=== PATIENT | female | born 1990 | race Caucasian/White ===

== ENCOUNTER 2021-03-07 23:15 | Emergency (ER) | payer MEDICAID ==
[~2021-03-07] VITALS: Ht 167.6 cm; Wt 110.3 kg
[2021-03-07] MEDS ORDERED: ZITHROMAX250 MG PO (23:42)
[2021-03-08] MEDS ORDERED: DOXYCYCLINE HY100 MG PO (00:10)
== END 2021-03-08 00:21 | disposition home or self-care (01) ==
LOC: ED 23:15
DX: N76.2 Acute vulvitis (principal); Z88.6 Allergy status to analgesic agent; Z86.73 Personal history of transient ischemic attack (TIA), and cerebral infarction without residual deficits
CPT/HCPCS: 99283

== ENCOUNTER 2022-10-20 11:52 | Emergency (ER) | payer OTHER ==
[~2022-10-20] VITALS: Ht 167.6 cm; Wt 101.2 kg
[~2022-10-20 11:52] MED LIST: DOXYCYCLINE HY100 MG PO; ZITHROMAX250 MG PO
[2022-10-20 14:38] VITALS: BP 103/62
--- NOTE | 2022-10-20 18:11 | EKG ---
[facility] [address] [facility] [place], [place] [address] Signed Sinus bradycardia Otherwise normal ECG When compared with ECG of 25-MAR-2022 15:59, No significant change was found Confirmed by JACKSON GUEVARA MD ([id number]) on 10/20/2022 6:10:51 PM Electronically Signed By: JACKSON GUEVARA MD 10/20/221810 PATIENT NAME: AIME DAVIS Electrocardiogram DATE OF : [birth year] PHYSICIAN: JACKSON GUEVARA MD REPORT #: [id number] REPORT IS CONFIDENTIAL AND NOT TO BE RELEASED WITHOUT AUTHORIZATION
== END 2022-10-20 14:38 | disposition home or self-care (01) ==
LOC: ED 11:52
DX: R41.0 Disorientation, unspecified (principal); Z88.8 Allergy status to other drugs, medicaments and biological substances
CPT/HCPCS: 36415; 70450; 71045; 80053; 84484; 85025; 93005; 93010; 99285-25

== ENCOUNTER 2022-11-08 15:45 | Emergency (ER) | payer OTHER ==
[~2022-11-08] VITALS: Ht 167.6 cm; Wt 103.0 kg
--- OUTSIDE RECORDS SUMMARY | 2022-11-08 15:55 | XMS ---
PreManage Notification: AIME DAS [employer] Events No recent Security Events currently on file CRITERIA MET - [facility] - 2 Visits in 30 Days CARE PROVIDERS -, Kurtis Silva- Dentist: Director Of Direct Marketing [facility] PHONE: [phone] Mary has no Care Guidelines for this patient. Thom VISIT COUNT (12 MO.) [address] [place] [address] TOTAL 4 NOTE: Visits indicate total known visits. ED/UCC VISIT TRACKING (12 MO.) 11/08/2022 15:46 [facility] [place] TYPE: Emergency COMPLAINT: - ABDOMINAL PAIN 10/20/2022 11:53 [facility] [place] TYPE: Emergency COMPLAINT: - POSS STROKE DIAGNOSES: - Allergy status to other drugs, medicaments and biological substances - Disorientation, unspecified 05/30/2022 20:38 [facility] [place] TYPE: Emergency COMPLAINT: - L OVARY ISSUES DIAGNOSES: - Allergy status to analgesic agent - Other specified conditions associated with female genital organs and menstrual cycle - Pelvic and perineal pain - Unspecified ovarian cyst, left side 03/25/2022 15:10 [facility] [place] TYPE: Emergency COMPLAINT: - EYE PROBLEMS INPATIENT VISIT TRACKING (12 MO.) 03/25/2022 15:11 [facility] [place] TYPE: Observation COMPLAINT: - AMAUROSIS FUGAX DIAGNOSES: - Allergy status to other drugs, medicaments and biological substances - Amaurosis fugax - Body mass index [BMI] 37.0-37.9, adult - Contact with and (suspected) exposure to COVID-19 - Headache, unspecified - Obesity, unspecified - Occlusion and stenosis of right carotid artery - Other chronic pain - Other visual disturbances - Personal history of transient ischemic attack (TIA), and cerebral infarction without residual deficits - Prediabetes - Transient visual loss, right eye [email or web address]
[2022-11-08 21:59] VITALS: BP 107/66
== END 2022-11-08 22:01 | disposition home or self-care (01) ==
LOC: ED 15:45
DX: R10.2 Pelvic and perineal pain (principal); Z88.6 Allergy status to analgesic agent
CPT/HCPCS: 36415; 76830; 76856; 80053; 81001; 83690; 83735; 84703; 85025; 96374; 99284-25; J2405

== ENCOUNTER 2023-07-23 23:45 | Emergency (ER) | payer OTHER ==
[~2023-07-23] VITALS: Ht 167.6 cm; Wt 108.0 kg
[2023-07-24 01:17] VITALS: BP 112/66
== END 2023-07-24 01:13 | disposition home or self-care (01) ==
LOC: ED 23:45
DX: J02.9 Acute pharyngitis, unspecified (principal); Z88.6 Allergy status to analgesic agent
CPT/HCPCS: 87651; 99283

== ENCOUNTER 2023-10-17 09:43 | Emergency (ER) | payer OTHER ==
[~2023-10-17] VITALS: Ht 167.6 cm; Wt 109.6 kg
[2023-10-17 10:36] LABS: BASOPHILS 0.5 % (0-2); EOSINOPHILS 2.6 % (0-6); HEMATOCRIT 39.4 % (35.0-50.0); HEMOGLOBIN 12.8 g/dL (12.0-18.0); LYMPHOCYTES 41.4 % (24-44); MCH 27.5 (27-36); MCHC 32.4 g/dl (30-36); MCV 84.9 fl (81-99); MONOCYTES 7.3 % (0-12); NEUTROPHILS 48.2 % (39-80); PLATELET COUNT 270 K/uL (140-440); RBC 4.64 M/ul (4.3-5.7); RDW 13.4 (10.5-15.0)
[2023-10-17 10:43] LABS: ALBUMIN 3.6 g/dL (3.4-5.0); ALBUMIN/GLOBULIN RATIO 0.95 (1.1-2.4); ALKALINE PHOSPHATASE 58 U/L (46-116); ALT (SGPT) 24 U/L (14-59); AST (SGOT) 17 U/L (15-37); BILIRUBIN, TOTAL 0.3 ng/dL (0.2-1.0); BUN/CREATININE RATIO 8.42 (6.0-28.6); CARBON DIOXIDE 26 mmol/L (21-32); CHLORIDE 102 mmol/L (98-107); CREATININE, SERUM 0.95 mg/dL (0.55-1.02); GLOMERULAR FILTRATION RATE,EST 82 mL/min (>60); MAGNESIUM 1.8 mg/dL (1.8-2.4); PROTEIN, TOTAL 7.4 g/dL (6.4-8.2); UREA NITROGEN 8 mg/dL (7-18)
[2023-10-17] MEDS ORDERED: ASPIRIN 81 MG CHEW PO ONE (10:45)
[2023-10-17] MEDS ORDERED: LIDOCAINE & ANTACID 35 ML BTL PO ONE (10:45)
[2023-10-17] MEDS ORDERED: PANTOPRAZOLE SODIUM 40 MG/10 ML VIAL IV ONE (10:45)
[2023-10-17] MEDS ORDERED: OMEPRAZOLE20 MG PO (14:07)
[2023-10-17] MEDS ORDERED: ONDANSETRON ODT8 MG PO (14:07)
[2023-10-17 14:25] VITALS: BP 109/48
--- NOTE | 2023-10-17 19:25 | EKG ---
[facility] [address] [facility] [place], [place] [address] Signed Normal sinus rhythm with sinus arrhythmia Normal ECG Confirmed by Dinesh Dodson ([id number]) on 10/17/2023 7:25:40 PM Electronically Signed By: DINESH DODSON MD 10/17/23 192 PATIENT NAME: AIME DAS ANGELITO Electrocardiogram DATE OF : [birth year] PHYSICIAN: DINESH DODSON MD REPORT #: [id number] REPORT IS CONFIDENTIAL AND NOT TO BE RELEASED WITHOUT AUTHORIZATION
== END 2023-10-17 14:27 | disposition home or self-care (01) ==
LOC: ED 09:43
PROVIDERS: Emergency Medicine
DX: R10.13 Epigastric pain (principal); Z88.6 Allergy status to analgesic agent
CPT/HCPCS: 36415; 71045; 80053; 83735; 84484; 85025; 93005; 93010; 96374; 99285-25; A9270; C9113

== ENCOUNTER 2023-11-07 15:58 | Emergency (ER) | payer OTHER ==
[~2023-11-07] VITALS: Ht 167.6 cm; Wt 110.2 kg
[~2023-11-07 15:58] MED LIST changes: +OMEPRAZOLE20 MG PO; +ONDANSETRON ODT8 MG PO
--- OUTSIDE RECORDS SUMMARY | 2023-11-07 16:05 | XMS ---
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 Thom VISIT COUNT (12 MO.) 4 [facility] (Kathy Chavez) TOTAL 5 NOTE: Visits indicate total known visits. ED/UCC VISIT TRACKING (12 MO.) 11/07/2023 15:58 [facility] [place] TYPE: Emergency COMPLAINT: - RT BREAST ISSUES 10/17/2023 09:44 [facility] [place] TYPE: Emergency COMPLAINT: - CHEST PAIN DIAGNOSES: - Allergy status to analgesic agent - Epigastric pain 07/23/2023 23:46 [facility] [place] TYPE: Emergency COMPLAINT: - THROAT/SWALLOWING ISSUE DIAGNOSES: - Acute pharyngitis, unspecified - Allergy status to analgesic agent [facility] Emergency DIAGNOSES: - COVID-19 - head congestion body aches runny nose - URI 11/08/2022 15:46 [facility] [place] TYPE: Emergency COMPLAINT: - ABDOMINAL PAIN DIAGNOSES: - Allergy status to analgesic agent - Pelvic and perineal pain INPATIENT VISIT TRACKING (12 MO.) No inpatient visits to display in this time frame [email or web address]
[2023-11-07 19:59] LABS: BASOPHILS 0.2 % (0-2); EOSINOPHILS 1.4 % (0-6); HEMATOCRIT 38.6 % (35.0-50.0); HEMOGLOBIN 12.8 g/dL (12.0-18.0); LYMPHOCYTES 34.9 % (24-44); MCHC 33.1 g/dl (30-36); MCV 84.5 fl (81-99); MONOCYTES 5.5 % (0-12); PLATELET COUNT 222 K/uL (140-440); RBC 4.57 M/ul (4.3-5.7); RDW 13.9 (10.5-15.0)
[2023-11-07 20:07] LABS: PROTIME 12.8 Sec (11.2-14.2)
[2023-11-07 20:13] LABS: ALBUMIN 3.4 g/dL (3.4-5.0); ALBUMIN/GLOBULIN RATIO 0.92 (1.1-2.4); ANION GAP 13.8 (7-21); BILIRUBIN, TOTAL 0.4 ng/dL (0.2-1.0); BUN/CREATININE RATIO 10.86 (6.0-28.6); CALCIUM 8.4 mg/dL (8.5-10.1); CREATININE, SERUM 0.92 mg/dL (0.55-1.02); POTASSIUM 3.8 mmol/L (3.5-5.1); PROTEIN, TOTAL 7.1 g/dL (6.4-8.2)
[2023-11-07 21:05] VITALS: BP 117/77
== END 2023-11-07 21:05 | disposition home or self-care (01) ==
LOC: ED 15:58
PROVIDERS: Family Medicine
DX: N64.89 Other specified disorders of breast (principal); Z79.899 Other long term (current) drug therapy; Z88.6 Allergy status to analgesic agent
CPT/HCPCS: 36415; 76642; 80053; 85025; 85610; 99284-25

== ENCOUNTER 2024-08-31 10:07 | Emergency (ER) | payer OTHER ==
[~2024-08-31] VITALS: Ht 167.6 cm; Wt 109.2 kg
[~2024-08-31 10:07] MED LIST changes: +KETOROLAC TROME10 MG PO; +ONDANSETRON ODT4 MG SL; +PERCOCET 5-3251 EACH PO
[2024-08-31] MEDS ORDERED: BAYER CHEWABLE81 MG PO (10:23)
[2024-08-31] MEDS ORDERED: MIDOL COMPLETE1 EACH PO (10:23)
[2024-08-31 10:52] LABS: BASOPHILS 0.3 % (0-2); EOSINOPHILS 1.3 % (0-6); HEMATOCRIT 38.8 % (35.0-50.0); HEMOGLOBIN 13.1 g/dL (12.0-18.0); LYMPHOCYTES 36.3 % (24-44); MCH 28.5 (27-36); MCHC 33.7 g/dl (30-36); MCV 84.7 fl (81-99); NEUTROPHILS 55.1 % (39-80); PLATELET COUNT 222 K/uL (140-440); RBC 4.58 M/ul (4.3-5.7); RDW 13.5 (10.5-15.0)
[2024-08-31] MEDS ORDERED: CYCLOBENZAPRINE HCL 10 MG TAB PO ONE (11:00)
[2024-08-31] MEDS ORDERED: IBUPROFEN 600 MG TAB PO ONE (11:00)
[2024-08-31 11:03] LABS: ALBUMIN 3.4 g/dL (3.4-5.0); ALBUMIN/GLOBULIN RATIO 0.97 (1.1-2.4); ALKALINE PHOSPHATASE 46 U/L (46-116); ALT (SGPT) 28 U/L (14-59); ANION GAP 11.9 (7-21); AST (SGOT) 13 U/L (15-37); BILIRUBIN, TOTAL 0.4 mg/dL (0.2-1.0); BUN/CREATININE RATIO 6.32 (6.0-28.6); CALCIUM 8.5 mg/dL (8.5-10.1); CARBON DIOXIDE 27 mmol/L (21-32); CHLORIDE 105 mmol/L (98-107); CREATININE, SERUM 0.79 mg/dL (0.55-1.02); GLOMERULAR FILTRATION RATE,EST 101 mL/min (>60); POTASSIUM 3.9 mmol/L (3.5-5.1); PROTEIN, TOTAL 6.9 g/dL (6.4-8.2); UREA NITROGEN 5 mg/dL (7-18)
[2024-08-31] MEDS ORDERED: CYCLOBENZAPRINE10 MG PO (11:39)
[2024-08-31 11:49] VITALS: BP 100/60
--- NOTE | 2024-09-01 12:23 | EKG ---
[facility] [address] [facility] [place] [address] Signed Normal sinus rhythm Normal ECG When compared with ECG of 17-OCT-2023 09:46, No significant change was found Confirmed by Bob Freeman MD () on 09/01/2024 12:23:13 PM Electronically Signed By: BOB FREEMAN MD 09/01/24 1223 PATIENT NAME: PIPPAAIME Electrocardiogram DATE OF : [birth year] PHYSICIAN: BOB FREEMAN MD REPORT #: [id number] REPORT IS CONFIDENTIAL AND NOT TO BE RELEASED WITHOUT AUTHORIZATION
== END 2024-08-31 11:47 | disposition home or self-care (01) ==
LOC: ED 10:07
PROVIDERS: Emergency Medicine
DX: S16.1XXA Strain of muscle, fascia and tendon at neck level, initial encounter (principal); S44.91XA Injury of unspecified nerve at shoulder and upper arm level, right arm, initial encounter; X58.XXXA Exposure to other specified factors, initial encounter; Z88.8 Allergy status to other drugs, medicaments and biological substances; Z79.82 Long term (current) use of aspirin; Z79.899 Other long term (current) drug therapy
CPT/HCPCS: 36415; 80053; 84484; 85025; 93005; 93010; 99285; A9270

== ENCOUNTER 2025-03-12 05:45 | Day surgery (SDC) | payer OTHER ==
[2025-03-12] VITALS (11 sets, daily range): BP systolic 101–132; BP diastolic 53–78
[~2025-03-12] VITALS: Ht 167.6 cm; Wt 114.3 kg
[~2025-03-12 05:45] MED LIST changes: +BAYER CHEWABLE81 MG PO; +CYCLOBENZAPRINE10 MG PO; +LACTATED RINGER'S 1,000 ML IV SCH; +MIDOL COMPLETE1 EACH PO
[2025-03-12] MEDS ORDERED: MIDOL CAPLET1 EAC1 PO (06:13)
[2025-03-12] MEDS ORDERED: CEFAZOLIN SODIUM 2 GM in SODIUM CHLORIDE 0.9% 100 ML IV SCH (07:00)
[2025-03-12] MEDS ORDERED: IBLOOD GLUCOSE TEST STRIP 1 EA TEST VI PRN ×2 (07:00→09:15)
[2025-03-12] MEDS ORDERED: LIDOCAINE HCL 1% 5 ML SDV INJ ONE (07:00)
[2025-03-12] MEDS ORDERED: HEParin SOD (PORCINE) 5,000 UNIT/ML SDV SUB-Q SCH (07:00)
[2025-03-12] MEDS ORDERED: fentaNYL citrate 100 MCG/2 ML VIAL ONE ×2 (07:20→07:56)
[2025-03-12] MEDS ORDERED: LIDOCAINE HCL 2% 5 ML SDV ONE (07:20)
[2025-03-12] MEDS ORDERED: ROCURONIUM BROMIDE 50 MG/5 ML SYR ONE ×3 (07:20→09:48)
[2025-03-12] MEDS ORDERED: DEXAMETHASONE SOD PHOS 4 MG/ML VIAL ONE (07:22)
[2025-03-12] MEDS ORDERED: KETOROLAC TROMETHAMINE 30 MG/ML VIAL ONE (07:22)
[2025-03-12] MEDS ORDERED: SEVOFLURANE 250 ML BTL ONE (07:32)
[2025-03-12] MEDS ORDERED: MAGNESIUM SULFATE 1 GM/2 ML VIAL ONE (07:53)
[2025-03-12] MEDS ORDERED: KETAMINE in NS 50 MG/5 ML SYR ONE (08:21)
[2025-03-12] MEDS ORDERED: LABETALOL HCL 20 MG/4 ML VIAL ONE (08:33)
[2025-03-12] MEDS ORDERED: ACETAMINOPHEN 1,000 MG/100 ML VIAL ONE (09:05)
[2025-03-12] MEDS ORDERED: HYDROmorphone HCL 1 MG/ML SYR IV PRN ×3 (09:15→17:30)
[2025-03-12] MEDS ORDERED: fentaNYL citrate 50 MCG/ML SDV IV PRN (09:15)
[2025-03-12] MEDS ORDERED: NALOXONE HCL 0.4 MG SYR IV PRN ×2 (09:15→12:30)
[2025-03-12] MEDS ORDERED: SEVOFLURANE 250 ML BTL INH ONE (09:16)
[2025-03-12] MEDS ORDERED: SUGAMMADEX SODIUM 200 MG/2 ML ML ONE (09:48)
[2025-03-12] MEDS ORDERED: FLUORESCEIN SODIUM 500 MG/5 ML ML ONE (09:50)
--- NOTE | 2025-03-12 10:48 | NUR ---
03/12/25 Bri8 Laura Fowler 1038- PT ARRIVES TO PACU, SEMI PRITCHETT POSITION, NON REACTIVE TO STIMULUS. OPA IN PLACE, MAINTAINING AIRWAY WITH HEAD POSITIONING, BREATHING EVEN AND NON LABORED, O2 AT 6L PER MASK. LR INFUSING TO RFA IV. ABD SOFT, NON DISTENDED. 4 LAP SITES, DRESSINGS CDI. CAMILO CATHETER IN PLACE DRAINING BRIGHT COLORED URINE, FLOURESCENCE USED. ALL MONITORS IN PLACE.
--- NOTE | 2025-03-12 11:46 | NUR ---
1135- BEDSIDE REPORT RECEIVED FROM RADHA EARL. PT IS RESTING WITH EYES CLOSED ON 2L OF O2 VIA NC. PT REPORTS 5/10 PAIN THAT IS TOLERABLE AND NO NAUSEA. LR INFUSING. CAMILO IS IN PLACE WITH CLEAR, YELLOW URINE DRAINING. VITAL SIGNS OBATINED. DISCHARGE CRITERIA DISCUSSED AND PT IS AGREEABLE. PT EASILY FALLS BACK TO SLEEP.
[2025-03-12] MEDS ORDERED: OXYCODONE/APAP 5/325 TAB PO PRN (12:30)
[2025-03-12] MEDS ORDERED: PROCHLORPERAZINE EDISYLATE 10 MG/2 ML VIAL IV PRN (12:30)
[2025-03-12] MEDS ORDERED: FAMOTIDINE 20 MG/ 2 ML VIAL IV PRN (12:30)
[2025-03-12] MEDS ORDERED: SIMETHICONE 80 MG CHEW PO PRN (12:30)
[2025-03-12] MEDS ORDERED: MAGNESIUM HYDROXIDE/AL HYDROX 30 ML CUP PO PRN (12:30)
--- NOTE | 2025-03-12 12:48 | NUR ---
1235- PT IS REQUESTING WATER. WATER AND CRACKERS PROVIDED, PT IS ABLE TO EAT AND DRINK AND DENIES NAUSEA. CAMILO CATHETER REMOVED PER ORDERS. 150ML OF CLEAR, YELLOW, CONCENTRATED URINE NOTED IN CAMILO BAG. O2 TURNED OFF AND REMOVED. PT IS ABLE TO MAINTAIN SATS ABOVE 95%. AT BEDSIDE. 1245- VITAL SIGNS OBATINED. SURGICAL SITES ASSESSED. QUESTIONS AND CONCERNS ANSWERED. PT IS RESTING NOW WITH EYES CLOSED AND A SMALL AMOUNT OF SNORING NOTED. APPLESAUCE PROVIDED.
[2025-03-12] MEDS ORDERED: SIMETHICONE 80 MG CHEW PO SCH (13:00)
--- NOTE | 2025-03-12 14:02 | NUR ---
1400- PT RESTING IN STRETCHER TALKING ON THE PHONE. VITAL SIGNS OBTAINED. PT REPORTS 5/10 PAIN AND WOULD LIKE MEDICATION AT THIS TIME. SURGICAL SITES ASSESSED. VSS. PT AWARE OF DISCHARGE CRITERIA. QUESTIONS AND CONCERNS ANSWERED. PT HOB INCREASED TO EAT APPLE SAUCE.
--- NOTE | 2025-03-12 14:35 | NUR ---
1413- PT REQUESTING TO GET UP AND USE THE RESTROOM. PT SITTING UP AT THE SIDE OF THE BED. PT GETTING MEDICAITONS AND TOOK THE MYLICON. PT BEGINS DRY HEAVING AND DENIES WANTING THE PAIN MEDICAION FOR NOW. 1435- PT IS GIVEN COMPAZINE FOR NAUSEA. PT LAYING ON HER RIGHT SIDE WITH A COOL WASHCLOTH ON HER FOREHEAD.
--- NOTE | 2025-03-12 15:15 | NUR ---
1500- PT IS RESTING IN STRETCHER. PT WAKES TO VERBAL STIMULI. PT REPORTS 5/10 PAIN AND DOES NOT WANT PAIN MEDICAITON AT THIS TIME. PT DENIES NAUSEA AFTER NAUSEA MEDICAITON WAS GIVEN EARLIER. PT REQUESTING TO GET UP AND USE THE RESTROOM.
--- NOTE | 2025-03-12 15:45 | NUR ---
1530- PT IS UP TO THE RESTROOM. PT IS ABLE TO WALK SLOWLY TO BATHROOM WITH AN EVEN AND STEADY GAIT. PT IS ABLE TO VOID 200ML OF CLEAR, YELLOW AND CONCENTRATED URINE.
--- NOTE | 2025-03-12 16:21 | NUR ---
1545- PT WHILE STANDING UP IN THE RESTROOM VOMITS 400ML OF CLEAR, YELLOW FLUID. PT RETURNED TO ROOM SAFELY. COMPAZINE GIVEN, SEE EMAR. 1549- DR. WEI CALLED AND UPDATED ABOUT PATIENTS NAUSEA. VERBAL ORDER FOR 8MG OF ZOFRAN. 1600- PT RESTING IN ROOM. ZOFRAN GIVEN, SEE EMAR. PT DENIES NAUSEA AT THIS TIME WHILE LAYING STILL. PT REPORTS 5/10 PAIN BUT DENIES WANTING PAIN MEDICATION AT THIS TIME DUE TO HER NAUSEA COMING AND GOING. SURGICAL SITES ASSESSED. PT REPORTS THE ONE AT THE UMBILICUS HURTING THE MOST. BED IS LOCKED IN THE LOWEST POSITION.
--- NOTE | 2025-03-12 17:06 | NUR ---
165- VITAL SIGNS OBTAINED. DISCHARGE CRITERIA DISCUSSED AND GONE OVER WITH EDUCATION GIVEN. PT REPORTS 7/10 PAIN BUT WORRIED ABOUT TAKING PAIN MEDICATION WITH INCREASED NAUSEA. PT HAS EMESIS BAG AT BEDSIDE. 1699- DR. WEI CALLED AND UPDATED. WEI TO COME TO DAY SURGERY TO ASSESS PT. 1704- PT MADE AWARE OF PLAN. QUESTIONS ANSWERED. PT SITTING UP AT THE SIDE OF THE BED MOANING WHEN MOVING WITH EMESIS BAG IN HAND. PT REPORTS PAIN AND NAUSEA. AT BEDSIDE COMFORTING PT. CRACKERS PROVIDED PER REQUEST. PT IS EDUCATED ABOUT VERY SLOWLY EATING WITH NAUSEA. PT REPORTS UNDERSTANDING.
--- NOTE | 2025-03-12 17:51 | NUR ---
Pt arrives to room via day surgery stretcher and 3 PACU RNs. Pt is A&O but drowsy. She reports her pain in her abdomen as a 4 out of 10 at this time. Pt is able to stand and pivot transfer from stretcher to bed, SBA. SCDs applied BLE. I/S at bedside, fresh water provided, cup of ice and emanuel crackers provided. 1755 report received from RN Charla Cole Assessment completed. Mylicon chew administered PO per emar, pt tolerated well, no nausea at this time. Pt oriented to room and call light. Side rails up x4, call light and bedside table with personal belongings in reach. Dr. Anderson in to see pt at 1807 hours.
--- NOTE | 2025-03-12 18:08 | NUR ---
1739- PAIN MEDICATION GIVEN PER . SEE EMAR. 1745- PT SITTING UP AFTER PAIN MEDICATION GIVEN AND VOMITS 50ML. 1755- BEDSIDE REPORT GIVEN TO RADHA MEIER. ALL QUESTIONS AND CONCERNS ANSWERED. PT IS ABLE TO TRANSFER TO MED/SURG BED SAFELY. CARE TURNED OVER AT THIS. BED LOCKED IN LOWEST POSTION AND PLUGGED IN . VITAL SIGNS OBATINED. SURGICAL SITES ASSESSED TOGETHER.
--- NOTE | 2025-03-12 18:42 | NUR ---
JOSIE Taylor in RT to let her know I placed the pt on CPOX per post op policy and also advised her of the pt's recent appointment with the sleep specialist and that she does not yet have a sleep study scheduled but will, eventually have one done.
--- NOTE | 2025-03-12 19:13 | NUR ---
PATIENT IN BED AT THIS TIME. HEAD CORRECTION OFFICER ASSISTED PATIENT TO BATHROOM AND THEN BACK TO BED. CALL LIGHT WITHIN REACH, NO FURTHER NEEDS.
--- NOTE | 2025-03-12 20:44 | NUR ---
Pt in bed, repositions self, no c/o pain. On room air, post op CPOX on at bedside. lungs clear bilat, abd large soft, tender, slightly distended upper abd. faint VERNON, denies passing gas or burping. lap sites covered with bandaids. cooperative with assessment, A&Ox4. flat affect cooperative. scds in place, SL RFA. Medicated with Pepcid, upset stomach. Watching tv with
--- NOTE | 2025-03-12 21:56 | NUR ---
c/o feeling nauseated, medicated with zofran iv. in bed, scds in place, post op cpox at bedside, on room air. denies passing gas or burping, tolerating small sips of water and crackers at this time.
--- NOTE | 2025-03-13 00:10 | NUR ---
Pt up to brp, voided QS, ambulated lower nursing station hallways, back to bed, tolerated well, c/o gas pain and feeling nauseated on return, medicated with compazine 2.5mg IV. Back in bed, hob elevated, scds in place, post op CPOX on at bedside. sats ENL. no c/o abd pain, tolerating sips of fluids
[2025-03-13 01:30] VITALS: BP 131/66
--- NOTE | 2025-03-13 01:50 | NUR ---
AWAKE, C/O ABD PAIN, ON ROOM AIR, SCDS IN PLACE. REPOSITIONS SELF IN BED, CPOX ON AT BEDSIDE. NO C/O N/V AT THIS TIME, C/O ABD PAIN, MEDICATED WITH 1 NORCO. TOLERATING SIPS OF FLUID AND JELLO AT THIS TIME. AT BEDSIDE
[2025-03-13 01:51] VITALS: BP 131/66
--- NOTE | 2025-03-13 03:54 | NUR ---
Resting, eyes closed, on room air, cpox at bedside. no s/sx distress scds in place
[2025-03-13 04:57] VITALS: BP 132/63
--- NOTE | 2025-03-13 05:01 | NUR ---
CALL LIGHT ANSWERED. PT NEEDED TO USE BATHROOM. AUDIOVISUAL PRODUCTION SPECIALIST SBA TO BATHROOM. PT VOIDED AND ASSISTED BACK TO BED. VITALS AND I&O OBTAINED. PT STATES NO FURTHER NEEDS AT THIS TIME. CALL LIGHT WITHIN REACH.
[2025-03-13 06:05] VITALS: BP 132/63
--- NOTE | 2025-03-13 06:06 | NUR ---
RESTING, EYES CLOSED, CPPOX AT BEDSIDE, ON ROOM AIR, SCDS IN PLACE, NO FURTHER C/O PAIN OR N/V
--- NOTE | 2025-03-13 07:43 | NUR ---
RECIEVED REPORT FROM RADHA JOE. PT IS RECLINED IN CHAIR WITH EYES CLOSED. RR EVEN AND UNLABORED. CPOX IS AT BEDSIDE. CALL LIGHT WITHIN REACH.
--- NOTE | 2025-03-13 08:05 | NUR ---
PATIENT IN BED AT THIS TIME. ROUTE PROCESS ADMINISTRATOR CHARTED HOURLY ROUNDS. CALL LIGHT WITHIN REACH, NO FURTHER NEEDS.
--- NOTE | 2025-03-13 08:17 | NUR ---
PT IS RESTING IN BED WITH EYES OPEN. AND CPOX ARE AT BEDSIDE. ASSESSMENT COMPLETE AND DOCUMENTED IN CHART. LUNGS CLEAR THROUGHOUT. MURMUR AUSCULTATED. PT DENIES ANY PAIN AT THIS TIME. PT DENIES NUMBNESS OR TINGLING, BUT REPORTS UNCOMFORTABLE GAS. RADHA MEIER, EDUCATED PT THAT THIS IS NORMAL. MEDICATIONS ADMINISTERED PER THE EMAR. PT DENIES ANY NEEDS AT THIS TIME. CALL LIGHT AND PERSONAL BELONGINGS ARE WITHIN REACH.
[2025-03-13 09:16] VITALS: BP 115/61
--- NOTE | 2025-03-13 09:17 | NUR ---
PATIENT IN BED AT THIS TIME. ORE STORAGE DRIER CHARTED VITAL AND I&O'S. CALL LIGHT WITHIN REACH, NO FURTHER NEEDS.
[2025-03-13 09:40] VITALS: BP 115/61
== END 2025-03-13 10:23 | disposition home or self-care (01) ==
LOC: DS 05:45 → OPS 05:45 → DS 07:30 → MS 17:40 → OPS 03-13 10:23
PROVIDERS: ATTEND Obstetrics & Gynecology
PROC: 0UT94ZZ Resection of Uterus, Percutaneous Endoscopic Approach (ICD-10-PCS; principal; 2025-03-12 07:30)
PROC: 0DNU4ZZ Release Omentum, Percutaneous Endoscopic Approach (ICD-10-PCS; 2025-03-12 07:30)
DX: N80.03 Adenomyosis of the uterus (principal); N88.8 Other specified noninflammatory disorders of cervix uteri; K66.0 Peritoneal adhesions (postprocedural) (postinfection); N73.6 Female pelvic peritoneal adhesions (postinfective); K21.9 Gastro-esophageal reflux disease without esophagitis; Z88.6 Allergy status to analgesic agent; Z79.899 Other long term (current) drug therapy; Z90.49 Acquired absence of other specified parts of digestive tract; Z86.73 Personal history of transient ischemic attack (TIA), and cerebral infarction without residual deficits
CPT/HCPCS: 00840; 94762; 96374; 96375; 96376; J0131; J0360; J0688; J0780; J1100; J1171; J1644; J1790; J1885; J2003; J2405; J2704; J3010; J3475; J3490; J7121